=== PATIENT | female | born 1980 | race Caucasian/White ===

== ENCOUNTER 2018-09-13 07:08 | Day surgery (SDC) | payer OTHER ==
[~2018-09-13] VITALS: Ht 167.6 cm; Wt 78.8 kg
[2018-09-13 07:28] VITALS: BP 99/71; PULSE 67; TEMP 97.3
[2018-09-13] MEDS ORDERED: MULTIPLE VITAMI1 CAP PO (07:30)
[2018-09-13] MEDS ORDERED: PURINETHOL 50MG50 MG PO (09:00)
[2018-09-13 09:05] VITALS: BP 93/63; PULSE 73; TEMP 97
--- NOTE | 2018-09-13 09:05 | NUR ---
The patient arrived back to [facility] at this time. The patient appears alert and ambulated from the cart to the recliner in her room with the stand by assist of two nurses and appeared to tolerate the activity well. Post procedure vital signs were started at this time. The patient denies wanting anything to eat or drink at this time. Call light is within reach. Will continue to monitor the patient.
[2018-09-13 09:20] VITALS: BP 102/44; PULSE 68
--- NOTE | 2018-09-13 09:20 | NUR ---
The patient requested to try some apple juice and appears to be tolerating it well. The patient's was called to come pick her up in about 15-20 minutes. Vital signs appear stable. Will continue to monitor the patient.
[2018-09-13 09:40] VITALS: BP 93/67; PULSE 59
--- NOTE | 2018-09-13 09:40 | NUR ---
The patient voices a desire to be disharged home after speaking with the doctor. The patient's vital signs appear stable. The patient's IV to her right anecubital was removed and a pressure dressing was applied to the site. The nurse instructed the patient to get dressed while she waits to speak with the doctor.
--- NOTE | 2018-09-13 09:50 | NUR ---
The patient has finished speaking with the doctor and discharge instructions were reviewed. The patient verbalized understanding and has no questions for the nurse at this time. The patient is dressed and ready to be escorted out.
--- NOTE | 2018-09-13 09:55 | NUR ---
The patient was escorted out via wheelchair to a private vehicle by [facility]. The patient's belongings and discharge paperwork were sent with her. The patient's is present to drive her home.
== END 2018-09-13 09:55 | disposition home or self-care (01) ==
LOC: SDCO 07:08
DX: K52.9 Noninfective gastroenteritis and colitis, unspecified (principal); K50.90 Crohn's disease, unspecified, without complications; K64.0 First degree hemorrhoids; F41.9 Anxiety disorder, unspecified; Z88.6 Allergy status to analgesic agent
CPT/HCPCS: J2704; J7030